=== PATIENT | male | born 1990 | race African-American/Black ===

== ENCOUNTER 2017-08-16 12:44 | Emergency (ER) | payer BC ==
[2017-08-16 14:00] LABS: Bilirubin Negative (Negative); Blood, Urine Negative (Negative); Glucose, Urine (Dipstick) Negative (Negative); Ketone, Urine Negative (Negative); Nitrite Negative (Negative); Protein, Urine (Dipstick) Negative (Neg-Trace)
[2017-08-16 15:56] LABS: #Eosinphils 0.2 thou/uL (0.0-0.7); #Lymphocytes 2.4 thou/uL (1.20-3.40); #Monocytes 0.4 thou/uL (0.11-0.59); #Neutrophils 3.7 thou/uL (1.40-6.50); %Basophils 0.6 % (0.0-1.0); %Eosinophils 2.4 % (0.0-10.0); %Lymphocytes 35.3 % (21.0-51.0); %Monocytes 6.4 % (0.0-10.0); Hematocrit 49.1 % (42.0-52.0); Mean Platelet Volume 6.7 fL (7.4-10.4); Red Blood Cell (RBC) Count 5.28 mill/uL (4.70-6.10); White Blood Cell (WBC) Count 6.7 thou/uL (4.8-10.8)
[2017-08-16 16:12] LABS: ALT (SGPT) 28 U/L (8-55); AST (SGOT) 23 U/L (5-34); Alkaline Phosphatase 65 U/L (40-150); Anion Gap 14 mmol/L (10-20); BUN (Urea Nitrogen) 8 mg/dL (8.9-20.6); Bilirubin, Total 0.7 mg/dL (0.2-1.2); Calc. Creatinine Clearance 0 mL/min (70-130); Calcium 9.8 mg/dL (7.8-10.44); Carbon Dioxide 26 mmol/L (22-29); Chloride 103 mmol/L (98-107); Estimated GFR-MDRD Greater than 90; Globulin 3.5 g/dL (2.4-3.5); Lipase 13 U/L (8-78); Protein, Total 8.3 g/dL (6.0-8.3)
[2017-08-16] MEDS ORDERED: Ketorolac Tromethamine 30 MG/ML VIAL ONE (16:27)
[2017-08-16] MEDS ORDERED: Dicyclomine 20 MG TAB ONE (16:27)
--- NOTE | 2017-08-16 18:39 | ULT ---
GALLBLADDER ULTRASOUND: History: Abdominal pain. Right upper quadrant pain. Comparison: CT abdomen/pelvis 07-10-13 FINDINGS: Real-time grayscale color evaluation of the right upper quadrant with attention to the gallbladder wa s performed. Hepatic echotexture is normal. The liver measures 14 cm in length. Pancreas is not well seen. Cholelithiasis is present. Veins are patent with antegrade flow. Sonographic Orozco's sign is negativ e according to the technologist. The gallbladder wall thickness is normal. No pericholecystic fluid. Right kidney measures 9.3 x 5.5 x 5.5 cm. IMPRESSION: Cholelithiasis without cholecystitis. POS: HOME
== END 2017-08-16 18:05 | disposition home or self-care (01) ==
LOC: ERS 12:44
DX: K21.9 Gastro-esophageal reflux disease without esophagitis (principal); I10 Essential (primary) hypertension; F17.210 Nicotine dependence, cigarettes, uncomplicated; Z79.899 Other long term (current) drug therapy
CPT/HCPCS: 36415; 76705; 80053; 81003; 83690; 85025; 96372; 99406; J1885

== ENCOUNTER 2019-08-11 19:41 | Emergency (ER) | payer BC ==
--- NOTE | 2019-08-11 20:39 | RAD ---
LEFT HIP TWO VIEWS: 08/11/19 HISTORY: Injury, left hip pain. FINDINGS/IMPRESSION: No definite fracture or dislocation is seen. If there is high clinical suspicion for fracture, furthe r evaluation with CT scan should be performed. POS: [facility]
== END 2019-08-11 21:00 | disposition home or self-care (01) ==
LOC: ERS 19:41
DX: M25.552 Pain in left hip (principal); I10 Essential (primary) hypertension; F17.210 Nicotine dependence, cigarettes, uncomplicated; Z79.899 Other long term (current) drug therapy

== ENCOUNTER 2021-04-28 08:16 | Emergency (ER) | payer BC | END 2021-04-28 09:20 | disposition home or self-care (01) | LOC: ERS 08:16 | DX: S93.602A Unspecified sprain of left foot, initial encounter (principal); I10 Essential (primary) hypertension; Z91.14 Patient's other noncompliance with medication regimen; W22.8XXA Striking against or struck by other objects, initial encounter ==

== ENCOUNTER 2024-10-07 08:14 | Outpatient (CLI) | payer BC | END 2024-10-07 08:15 | disposition home or self-care (01) | LOC: BICRAD 08:14 | PROVIDERS: ATTEND Family Medicine | DX: J18.9 Pneumonia, unspecified organism (principal); R06.02 Shortness of breath | CPT/HCPCS: 71046 ==